=== PATIENT | female | born 1985 | race Two or more races ===

== ENCOUNTER 2024-03-06 09:18 | Outpatient (CLI) | payer OTHER | END 2024-03-06 09:28 | disposition home or self-care (01) | LOC: SONOGRAMA 09:18 | PROVIDERS: ATTEND Obstetrics & Gynecology Reproductive Endocrinology | DX: D25.0 Submucous leiomyoma of uterus (principal); D25.1 Intramural leiomyoma of uterus; D64.9 Anemia, unspecified ==

== ENCOUNTER 2024-04-11 07:56 | Outpatient (CLI) | payer OTHER | END 2024-04-11 08:02 | disposition home or self-care (01) | LOC: MRI 07:56 | DX: N63.0 Unspecified lump in unspecified breast (principal) | CPT/HCPCS: 72196 ==

== ENCOUNTER 2024-05-28 14:20 | Outpatient (CLI) | payer OTHER ==
[2024-05-28 15:14] LABS: HEMATOCRIT 29.7 % (36.0-45.00); HEMOGLOBIN 9.5 g/dL (12.0-15.00); MEAN CELL VOLUME 79.3 fL (80.00-100.00); MEAN CORPUSCULAR HEMOGLOBIN 25.3 pg (27.00-32.0); MEAN CORPUSCULAR HGB CONC 31.9 g/dl (32.0-36.0); PLATELET COUNT 312 K/uL (150-450); RED BLOOD COUNT 3.74 M/uL (4.00-6.00); RED CELL DISTRIBUTION WIDTH 17.8 % (11.5-14.5)
[2024-05-28 15:33] LABS: ALBUMIN 3.8 gm/dL (3.4-5.0); BILIRUBIN TOTAL 0.35 mg/dL (0.3-1.2); CALCIUM 9.5 mg/dL (8.5-10.1); CREATININE SERUM 0.7 mg/dL (0.55-1.02); GFR 94.15; POTASSIUM 3.85 mEq/L (3.5-5.1); TOTAL PROTEIN 8.8 gm/dL (6.4-8.2)
[2024-05-28 15:53] LABS: INR 1.05; PARTIAL THROMBOPLASTIN TIME 23.1 SECONDS (22.0-34.0); PROTHROMBIN TIME 11.4 SECONDS (9.0-11.5)
[2024-05-28 22:27] LABS: URINE APPEARANCE Clear; URINE BILIRRUBIN Negative (NEGATIVE); URINE BLOOD Moderate; URINE COLOR Yellow; URINE GLUCOSE Negative (NEGATIVE); URINE KETONE Negative (NEGATIVE); URINE LEUKOCYTE Negative; URINE NITRATE Negative; URINE PROTEIN Negative (NEGATIVE); URINE UROBILINOGEN 0.2 E.U./dl
[2024-05-28 22:28] LABS: URINE BACTERIA 443.3 uL (0.0-1933); URINE EPITHELIAL CELLS 33.5 uL (0.0-38.8); URINE WBC 20.7 uL (0.0-23.2)
== END 2024-05-28 14:32 | disposition home or self-care (01) ==
LOC: RAD 14:20
DX: Z01.812 Encounter for preprocedural laboratory examination (principal)